=== PATIENT | female | born 1980 | race Caucasian/White ===

== ENCOUNTER 2018-12-15 16:15 | Outpatient (REF) | payer MEDICAID, SELFPAY ==
[2018-12-15 19:47] LABS: Iron 73 ug/dL (50-175)
[2018-12-15 19:56] LABS: HCT 36.3 % (36.0-46.0); HGB 11.7 g/dL (12.0-15.5); Mean Corp. HGB Concentration 32.2 g/dL (32.0-36.0); Mean Corpuscular Hemoglobin 31.8 pg (27.0-33.0); Mean Corpuscular Volume 98.6 fL (80-95); Mean Platelet Volume 10.7 fL (8.0-11.0); Platelet Count 239 x1000/uL (130-400); RBC 3.68 m/cumm (4.00-5.20); RBC Distribution Width 12.9 % (11.7-14.6); White Blood Cell Count 6.66 k/cumm (4.4-10.8)
[2018-12-15 20:00] LABS: ALT 25 U/L (12-78); AST 16 U/L (15-37); Albumin 3.8 g/dL (3.4-5.0); Alkaline Phosphatase 53 U/L (46-116); Anion Gap 10.9 mmol/L (3-11); BUN 13 mg/dL (7-18); Bilirubin, Total 0.2 mg/dL (0.2-1.0); CO2 27.1 mmol/L (21.0-32.0); CREATININE 0.84 mg/dL (0.55-1.02); Calcium 8.6 mg/dL (8.5-10.1); Chloride 105 mmol/L (98-107); Ferritin 66 ng/mL (8-388); Glucose 96 mg/dL (70-100); Potassium 4.2 mmol/L (3.5-5.1); Sodium 143 mmol/L (136-145); TSH 0.86 uIU/mL (0.36-3.74); Total Protein 6.8 g/dL (6.4-8.2)
== END 2018-12-15 16:35 ==
LOC: NCHCN 16:15
PROVIDERS: PCP Internal Medicine; Visit Provider Nurse Practitioner Family
DX: R55 Syncope and collapse (principal)
CPT/HCPCS: 80053; 85027; 82728; 83540; 84443

== ENCOUNTER 2019-02-08 08:12 | Outpatient (CLI) | payer MEDICAID, SELFPAY | END 2019-02-08 08:32 | PROVIDERS: PCP Internal Medicine; Visit Provider Nurse Practitioner Family | DX: R55 Syncope and collapse (principal); I49.1 Atrial premature depolarization; I49.3 Ventricular premature depolarization | CPT/HCPCS: 93225 ==

== ENCOUNTER 2019-02-11 09:58 | Outpatient (CLI) | payer MEDICAID, SELFPAY ==
--- NOTE | 2019-02-13 09:53 | HOLTER_ITS ---
DATE OF DICTATION: February 13, 2019 48-HOUR STUDY Baseline rhythm sinus. Rare single PAC. No SVT or atrial fibrillation. Rare single PVC. No VT. Nocturnal heart rates as low as 50-55 bpm, sinus bradycardia. Symptoms: Heartburn noted one time during sinus rhythm, 77 bpm, no ST-T wave changes. Headache noted once during sinus rhythm, 95 bpm. Average heart rate 82 bpm, range 53-134.
== END 2019-02-11 10:18 ==
PROVIDERS: PCP Internal Medicine; Visit Provider Nurse Practitioner Family
DX: I49.1 Atrial premature depolarization (principal); I49.3 Ventricular premature depolarization; R55 Syncope and collapse
CPT/HCPCS: 93226

== ENCOUNTER 2019-07-05 11:05 | Outpatient (REF) | payer MEDICAID, SELFPAY ==
[2019-07-05 20:28] LABS: HCT 39.9 % (36.0-46.0); Mean Corp. HGB Concentration 32.6 g/dL (32.0-36.0); Mean Corpuscular Hemoglobin 31.6 pg (27.0-33.0); Mean Corpuscular Volume 96.8 fL (80-95); Platelet Count 280 x1000/uL (130-400); RBC 4.12 m/cumm (4.00-5.20); RBC Distribution Width 13.1 % (11.7-14.6)
[2019-07-05 20:44] LABS: ALT 19 U/L (14-59); AST 20 U/L (15-37); Albumin 4.4 g/dL (3.4-5.0); Alkaline Phosphatase 49 U/L (46-116); BUN 11 mg/dL (7-18); Bilirubin, Total 0.3 mg/dL (0.2-1.0); CREATININE 0.88 mg/dL (0.55-1.02); Calcium 8.7 mg/dL (8.5-10.1); Chloride 104 mmol/L (98-107); Glucose 87 mg/dL (74-106); Sodium 140 mmol/L (136-145); TSH (W/Ref FT4) 1.05 uIU/mL (0.36-3.74); Total Protein 7.4 g/dL (6.4-8.2)
== END 2019-07-05 11:25 ==
LOC: NCHCN 11:05
PROVIDERS: PCP Internal Medicine; Visit Provider Nurse Practitioner Family
DX: R63.4 Abnormal weight loss (principal)
CPT/HCPCS: 80053; 85027; 84443

== ENCOUNTER 2020-04-22 11:12 | Outpatient (REF) | payer MEDICAID, SELFPAY ==
[2020-04-22 19:42] LABS: Iron 87 ug/dL (50-170)
[2020-04-22 20:06] LABS: ESR 16 mm/hr (0-20); Vitamin D 25 Total 23.1 ng/ml (30-100)
[2020-04-22 23:21] LABS: Anion Gap 14.1 mmol/L (3-11); BUN 18 mg/dL (7-18); CO2 21.9 mmol/L (21.0-32.0); Calcium 9.8 mg/dL (8.5-10.1); Chloride 103 mmol/L (98-107); Ferritin 72 ng/mL (8-252); Glucose 103 mg/dL (74-106); Magnesium 1.8 mg/dL (1.8-2.4); Potassium 3.9 mmol/L (3.5-5.1); Sodium 139 mmol/L (136-145); TSH (W/Ref FT4) 1.37 uIU/mL (0.36-3.74); Vitamin B12 465 pg/mL (193-986)
[2020-04-23 16:55] LABS: CRP, High Sensitivity <0.34 mg/L (See Note)
== END 2020-04-22 11:32 ==
LOC: NCHCN 11:12
PROVIDERS: PCP Internal Medicine; Visit Provider Nurse Practitioner Family
DX: R53.83 Other fatigue (principal); R61 Generalized hyperhidrosis; Z13.220 Encounter for screening for lipoid disorders
CPT/HCPCS: 80048; 82306; 85652; 86141; 82607; 82728; 83540; 83735; 84443

== ENCOUNTER 2020-11-11 11:22 | Outpatient (REF) | payer MEDICAID, SELFPAY ==
--- NOTE | 2020-11-11 10:30 | PAPFT_PTH ---
PATIENT: Eleanor Le LOC: [facility] U#:[id number] AGE/SX: 40/F ROOM: RE11/11/[address]: Millie Richardson : 1980 BED: DIS: 11/11/2020 SPEC #: [id number] RECD: 11/12/20 13:11 STATUS: MURALI SESAY #: [id number] PHU: 11/11/20 10:[address]: Millie Richardson DEPT: [facility] Cytology RECD BY: Julia Hernandez ENTERED: 11/12/20 13:11 SP TYPE: PAPFT OTHR DR: Eugenio Novoa Tissues: 1 - CX/ENDOCX FOR PAP SMEARS Procedures: PAP THIN PREP/[facility] Screening HPV DNA PROBE Comments: [id number]
== END 2020-11-11 11:23 | disposition home or self-care (01) ==
LOC: NCHCN 11:22
PROVIDERS: PCP Internal Medicine; Visit Provider Nurse Practitioner Family
DX: Z12.4 Encounter for screening for malignant neoplasm of cervix (principal); Z01.419 Encounter for gynecological examination (general) (routine) without abnormal findings; Z11.51 Encounter for screening for human papillomavirus (HPV)
CPT/HCPCS: 88142; 87624

== ENCOUNTER 2022-11-05 10:00 | Outpatient (REF) | payer MEDICAID, SELFPAY ==
[2022-11-05 21:03] LABS: ALT 20 U/L (14-59); AST 20 U/L (15-37); Albumin 4.3 g/dL (3.4-5.0); Alkaline Phosphatase 80 U/L (46-116); Anion Gap 11.6 mmol/L (3-11); BUN 12 mg/dL (7-18); Bilirubin, Total 0.4 mg/dL (0.2-1.0); CO2 23.4 mmol/L (21.0-32.0); CREATININE 0.9 mg/dL (0.55-1.02); Calculated LDL 119 mg/dL (<100); Chloride 102 mmol/L (98-107); Cholesterol 193 mg/dL (<200); Estimated GFR 82.88 (mL/min/1.73m2); Glucose 110 mg/dL (74-106); HDL Cholesterol 58 mg/dL (40-60); Potassium 3.9 mmol/L (3.5-5.1); Sodium 137 mmol/L (136-145); TSH (W/Ref FT4) 1.89 uIU/mL (0.36-3.74); Total Protein 8.4 g/dL (6.4-8.2); Triglyceride 81 mg/dL (<150)
[2022-11-05 21:34] LABS: Hemoglobin A1C 5.5 % (<5.7)
== END 2022-11-05 10:01 | disposition home or self-care (01) ==
LOC: NCHCN 10:00
PROVIDERS: PCP Internal Medicine; Visit Provider Physician Assistant
DX: F41.8 Other specified anxiety disorders (principal); Z13.220 Encounter for screening for lipoid disorders; Z13.1 Encounter for screening for diabetes mellitus; Z83.3 Family history of diabetes mellitus
CPT/HCPCS: 80053; 80061; 83036; 84443

== ENCOUNTER 2023-10-20 10:37 | Outpatient (REF) | payer MEDICAID, SELFPAY ==
--- NOTE | 2023-10-20 09:20 | PAPFT_PTH ---
PATIENT: Eleanor Le LOC: [facility]#:[id number] AGE/SX: 43/F ROOM: RE10/20/[address]: Dione Mai : 1980 BED: DIS: 10/20/2023 SPEC #: [id number] RECD: 10/21/23 12:57 STATUS: ALEAHJana REJavier #: [id number] PHU: 10/20/23 09:[address]: Dione Mai DEPT: [facility] Cytology RECD BY: Julia Hernandez ENTERED: 10/21/23 12:58 SP TYPE: PAPFT OTHR DR: Eugenio Novoa Tissues: 1 - CX/ENDOCX FOR PAP SMEARS Procedures: PAP THIN PREP/[facility] Screening HPV DNA PROBE Comments: [id number] (CHLAMYDIA/GC)
[2023-10-20 21:13] LABS: Abs Immature Grans 0.04 10^3/uL (0.0-0.06); Absolute Basophil Count 0.03 10^3/uL (0.0-0.2); Absolute Eosinophil Count 0.01 10^3/uL (0.0-0.7); Absolute Lymphocyte Count 3.32 10^3/uL (1.2-3.4); Basophils % 0.2 %; Eosinophils % 0.1 %; HCT 40.9 % (36.0-46.0); HGB 13.4 g/dL (11.2-15.7); Immature Grans % 0.3 %; Lymphocytes % 22.5 %; MCH 32.4 pg (27.0-33.0); MCHC 32.8 % (32.0-36.0); MCV 99 fL (80-95); MPV 10.5 fL (8.0-11.0); Monocytes % 6.2 %; Neutrophils % 70.7 %; Platelet Count 316 10^3/uL (130-400); RBC 4.14 10^6/uL (3.93-5.22); RDW 12.8 % (11.7-14.6); WBC 14.76 10^3/uL (4.4-10.8)
[2023-10-20 21:17] LABS: Absolute Monocyte Count 0.92 10^3/uL (0.1-0.8); Absolute Neutrophil Count 10.44 10^3/uL (1.2-6.7)
[2023-10-20 21:23] LABS: Hemoglobin A1C 5.6 % (<5.7)
[2023-10-20 21:37] LABS: ALT 24 U/L (14-59); AST 20 U/L (15-37); Albumin 4.3 g/dL (3.4-5.0); Alkaline Phosphatase 68 U/L (46-116); BUN 14 mg/dL (7-18); Bilirubin, Total 0.4 mg/dL (0.2-1.0); Calcium 9.2 mg/dL (8.5-10.1); Calculated LDL 89 mg/dL (<100); Chloride 103 mmol/L (98-107); Cholesterol 176 mg/dL (<200); Estimated GFR 72.58 (mL/min/1.73m2); Glucose 109 mg/dL (74-106); HDL Cholesterol 77 mg/dL (40-60); Potassium 3.6 mmol/L (3.5-5.1); Sodium 138 mmol/L (136-145); TSH (W/Ref FT4) 1.61 uIU/mL (0.36-3.74); Triglyceride 50 mg/dL (<150)
[2023-10-21 20:18] LABS: Hepatitis B Surface Ag Negative (Negative)
[2023-10-21 21:00] LABS: HIV-1/2 Ag & Ab Screen Negative (Negative)
[2023-10-21 21:10] LABS: Hepatitis C Ab w Rflx HCV PCR Negative (Negative)
[2023-10-22 11:01] LABS: Syphilis Serology (RPR) Negative (Negative)
[2023-10-22 14:59] LABS: Chlamydia Result Negative (Negative); GC Result Negative (Negative)
== END 2023-10-20 10:38 | disposition home or self-care (01) ==
LOC: NCHCN 10:37
PROVIDERS: PCP Internal Medicine; Visit Provider Physician Assistant
DX: Z01.419 Encounter for gynecological examination (general) (routine) without abnormal findings (principal); Z11.51 Encounter for screening for human papillomavirus (HPV); F41.9 Anxiety disorder, unspecified; D64.9 Anemia, unspecified; Z13.6 Encounter for screening for cardiovascular disorders; Z13.1 Encounter for screening for diabetes mellitus
CPT/HCPCS: 80053; 80061; 86803; 87340; 87389; 87491; 87591; 88142; 83036; 84443; 85025; 86592; 87624

== ENCOUNTER 2023-11-18 07:44 | Outpatient (REF) | payer MEDICAID, SELFPAY ==
[2023-11-18 19:10] LABS: Abs Immature Grans 0.05 10^3/uL (0.0-0.06); Absolute Basophil Count 0.04 10^3/uL (0.0-0.2); Absolute Lymphocyte Count 3.41 10^3/uL (1.2-3.4); Absolute Monocyte Count 0.97 10^3/uL (0.1-0.8); Basophils % 0.3 %; Eosinophils % 0.1 %; HCT 39.9 % (36.0-46.0); HGB 12.8 g/dL (11.2-15.7); Immature Grans % 0.4 %; Lymphocytes % 24.9 %; MCHC 32.1 % (32.0-36.0); MCV 100 fL (80-95); MPV 10.2 fL (8.0-11.0); Monocytes % 7.1 %; Neutrophils % 67.2 %; Platelet Count 331 10^3/uL (130-400); RDW 12.9 % (11.7-14.6); RDW-SD 47.2 fL; WBC 13.71 10^3/uL (4.4-10.8)
[2023-11-18 19:16] LABS: Absolute Eosinophil Count 0.01 10^3/uL (0.0-0.7); Absolute Neutrophil Count 9.21 10^3/uL (1.2-6.7)
[2023-11-18 19:19] LABS: INR 0.9 (0.9-1.1); Prothrombin Time 9.3 sec (9.1-11.1)
== END 2023-11-18 07:45 | disposition home or self-care (01) ==
LOC: NCHCN 07:44
PROVIDERS: PCP Internal Medicine; Visit Provider Physician Assistant
DX: D72.829 Elevated white blood cell count, unspecified (principal)
CPT/HCPCS: 85025; 85610

== ENCOUNTER 2024-02-21 13:15 | Outpatient (CLI) | payer MEDICAID, SELFPAY ==
--- NOTE | 2024-02-21 | DI.US_ITS ---
Exam(s) US THYROID EXAM: US THYROID CLINICAL HISTORY: Abnl findings on DI, R93.89; f/u imaging at [facility] [place] 02/21/24. TECHNIQUE: Ultrasound thyroid performed using standard protocol. COMPARISON: No exams were available for comparison FINDINGS: ISTHMUS: 3 mm RIGHT LOBE: Size: 3.7 x 1.4 x 1.2 cm Echogenicity: Normal. Diffuse microcalcifications. Vascularity: Normal. Nodules: None. LEFT LOBE: Size: 2.8 x 0.8 x 1.0 cm Echogenicity: Normal. Diffuse microcalcifications. Vascularity: Normal. Nodules: None. OTHER FINDINGS: No adenopathy. IMPRESSION: Diffuse bilateral thyroid microcalcifications. No discrete nodule. Normal size gland. DATA REPOSITORY:
== END 2024-02-21 13:35 ==
LOC: DI 13:15
PROVIDERS: PCP Internal Medicine; Visit Provider Physician Assistant
DX: R93.89 Abnormal findings on diagnostic imaging of other specified body structures (principal)
CPT/HCPCS: 76536

== ENCOUNTER 2024-09-01 15:17 | Outpatient (REF) | payer MEDICAID, SELFPAY ==
[2024-09-01 18:57] LABS: Abs Immature Grans 0.03 10^3/uL (0.0-0.06); Absolute Basophil Count 0.02 10^3/uL (0.0-0.2); Absolute Lymphocyte Count 1.55 10^3/uL (1.2-3.4); Absolute Monocyte Count 0.69 10^3/uL (0.1-0.8); Absolute Neutrophil Count 6.27 10^3/uL (1.2-6.7); Basophils % 0.2 %; HCT 43.8 % (36.0-46.0); HGB 14.2 g/dL (11.2-15.7); Immature Grans % 0.4 %; Lymphocytes % 18.1 %; MCH 31.4 pg (27.0-33.0); MCHC 32.4 % (32.0-36.0); MCV 97 fL (80-95); MPV 10.4 fL (8.0-11.0); Monocytes % 8.1 %; Neutrophils % 73.2 %; Platelet Count 332 10^3/uL (130-400); RBC 4.52 10^6/uL (3.93-5.22); RDW 12.9 % (11.7-14.6); RDW-SD 46.3 fL; WBC 8.56 10^3/uL (4.4-10.8)
[2024-09-01 19:08] LABS: ALT 25 U/L (14-59); AST 29 U/L (15-37); Albumin 4.3 g/dL (3.4-5.0); Alkaline Phosphatase 80 U/L (46-116); Anion Gap 12.4 mmol/L (3-11); BUN 10 mg/dL (7-18); Bilirubin, Total 0.3 mg/dL (0.2-1.0); CO2 26.6 mmol/L (21.0-32.0); Calcium 9.5 mg/dL (8.5-10.1); Chloride 98 mmol/L (98-107); Estimated GFR 72.13 (mL/min/1.73m2); Glucose 132 mg/dL (74-106); Potassium 3.9 mmol/L (3.5-5.1); Sodium 137 mmol/L (136-145); Total Protein 8.1 g/dL (6.4-8.2)
== END 2024-09-01 15:18 | disposition home or self-care (01) ==
LOC: NCHCN 15:17
PROVIDERS: PCP Internal Medicine; Visit Provider Physician Assistant
DX: R05.9 Cough, unspecified (principal)
CPT/HCPCS: 80053; 85025

== ENCOUNTER 2025-04-18 13:43 | Outpatient (REF) | payer MEDICAID, SELFPAY | END 2025-04-18 13:44 | disposition home or self-care (01) | LOC: NCHCN 13:43 | PROVIDERS: PCP Internal Medicine; Visit Provider Nurse Practitioner Family | DX: Z12.4 Encounter for screening for malignant neoplasm of cervix (principal) | CPT/HCPCS: 88142; 87624 ==